=== PATIENT | female | born 1965 | race Caucasian/White ===

== ENCOUNTER → 2016-07-02 | Outpatient (CLI) | payer OTHER | LOC: KOH-I 06-24 11:00 → HEART 5 13:30 → KOH-I 07-04 11:00 → HEART 5 07-04 11:00 | DX: I73.9 Peripheral vascular disease, unspecified (principal) ==

== ENCOUNTER 2020-05-20 12:07 | Emergency (ER) | payer OTHER ==
[~2020-05-20 12:07] MED LIST: ASPIRIN EC81 MG PO; CIPRO500 MG PO; CYMBALTA 30 MG30 MG PO; DUONEB NEB; FLAGYL500 MG PO; GABAPENTIN600 MG PO; IMODIUM CAP 2 MG2 MG PO; LIPITOR TAB 2020 MG PO; NEBULIZER UNIT; NORCO 5-325 TA1 EACH PO; OMNICEF 300 MG300 MG PO; PREDNISONE 50 M50 MG PO; PROTONIX40 MG PO; ROPINIROLE HCL0.5 MG PO; TYLENOL W/CODEIN1 E2 PO
== END 2020-05-20 16:51 | disposition home or self-care (01) ==
LOC: ER1 12:07
DX: M54.5 Low back pain (principal); I11.9 Hypertensive heart disease without heart failure; I25.2 Old myocardial infarction; K21.9 Gastro-esophageal reflux disease without esophagitis; J44.9 Chronic obstructive pulmonary disease, unspecified; I12.9 Hypertensive chronic kidney disease with stage 1 through stage 4 chronic kidney disease, or unspecified chronic kidney disease; N18.9 Chronic kidney disease, unspecified; Z90.89 Acquired absence of other organs; Z79.82 Long term (current) use of aspirin; Z88.8 Allergy status to other drugs, medicaments and biological substances; F17.210 Nicotine dependence, cigarettes, uncomplicated
CPT/HCPCS: 72131; 73030; 81001; 99284

== ENCOUNTER 2020-08-01 17:16 | Emergency (ER) | payer OTHER ==
[2020-08-01 19:56] LABS: HEMOGLOBIN 13.2 gm/dl (12.3-15.3); RED BLOOD COUNT 3.99 M/UL (4.00-5.10)
[2020-08-01 20:29] LABS: BUN/CREATININE RATIO 10 (0-10)
== END 2020-08-01 22:35 | disposition home or self-care (01) ==
LOC: ER1 17:16
PROVIDERS: Family Medicine
DX: J44.9 Chronic obstructive pulmonary disease, unspecified (principal); I25.2 Old myocardial infarction; N18.9 Chronic kidney disease, unspecified; G47.33 Obstructive sleep apnea (adult) (pediatric); F17.200 Nicotine dependence, unspecified, uncomplicated; Z79.82 Long term (current) use of aspirin
CPT/HCPCS: 71045; 80053; 82550; 82553; 83874; 84484; 85025; 93005; 94664; 99285